=== PATIENT | male | born 2000 | race Caucasian/White ===

== ENCOUNTER 2019-07-18 18:14 | Emergency (ER) | payer BC ==
[~2019-07-18] VITALS: Ht 172.7 cm; Wt 87.6 kg
--- NOTE | 2019-07-18 19:17 | NUR ---
REPORT TAKEN FROM CHAPO LAMBERT
[2019-07-18 19:23] LABS: BASOPHILS # (AUTO) 0.08 x10^3/uL (0-0.1); BASOPHILS % (AUTO) 1 % (0-1); EOSINOPHILS # (AUTO) 0.43 x10^3/uL (0-0.4); EOSINOPHILS % (AUTO) 7 % (1-7); LYMPHOCYTES # (AUTO) 2.42 x10^3/uL (1-3.4); LYMPHOCYTES % (AUTO) 40 % (22-44); MD NO; MEAN CORPUSCULAR HGB CONC 34.3 g/dL (33.2-36.2); MEAN CORPUSCULAR VOLUME 87.6 fL (81-97); MEAN PLATELET VOLUME 8.2 fL (7.4-10.4); MONOCYTES # (AUTO) 0.92 x10^3/uL (0.2-0.8); MONOCYTES % (AUTO) 15 % (2-9); NEUTROPHILS # (AUTO) 2.22 x10^3/uL (1.8-6.8); NEUTROPHILS % (AUTO) 37 % (42-75); PLATELET COUNT 208 x10^3/uL (130-400); RED BLOOD COUNT 5.33 x10^6/uL (4.38-5.82); RED CELL DISTRIBUTION WIDTH 13.4 % (9.4-14.8)
[2019-07-18 19:28] LABS: ALBUMIN 3.5 g/dL (3.4-5.0); ANION GAP 5 mmol/L (5-15); CALCIUM 8.5 mg/dL (8.5-10.1); CHLORIDE 107 mmol/L (98-107); CREATININE 1.11 mg/dL (0.7-1.3)
[2019-07-18 20:42] VITALS: BP 138/66
== END 2019-07-18 21:21 | disposition home or self-care (01) ==
LOC: ED 18:51
DX: R20.2 Paresthesia of skin (principal); R47.81 Slurred speech; R94.31 Abnormal electrocardiogram [ECG] [EKG]
CPT/HCPCS: 36415; 70450; 80048; 82040; 85025; 93005; 99285